=== PATIENT | male | born 1980 | race Caucasian/White ===

== ENCOUNTER 2017-07-07 21:34 | Emergency (ER) | payer OTHER ==
[2017-07-07 21:52] VITALS: RESP 16; TEMP 98; O2SAT 100
--- NOTE | 2017-07-08 00:09 | CT ---
EXAM: CT Abdomen and Pelvis Without Intravenous Contrast CLINICAL HISTORY: 36 years old, male; Pain; Abdominal pain; Flank; Right; Additional info: Right flank pain TECHNIQUE: Axial computed tomography images of the abdomen and pelvis without intravenous contrast. All CT scans at this facility use one or more dose reduction techniques, viz.: automated exposure control; ma/kV adjustment per patient size (including targeted exams where dose is matched to indication; i.e. head); or iterative reconstruction technique. Coronal and sagittal reformatted images were created and reviewed. COMPARISON: CT - ABD PELVIS W/O PO OR IV CONT 2016-07-06 22:57 FINDINGS: Lower thorax: No acute findings. ABDOMEN: Liver: Fatty infiltration. Gallbladder and bile ducts: No calcified stones. No ductal dilation. Pancreas: Unremarkable. No ductal dilation. Spleen: No splenomegaly. Adrenals: No mass. Kidneys and ureters: No renal calculi. Minimal pelvocaliectasis of RIGHT kidney. 0.3 x 0.2 x 0.6 cm calculus within RIGHT proximal ureter. Stomach and bowel: No definite mural thickening. No obstruction. Appendix: Normal caliber. No inflammation. PELVIS: Bladder: Unremarkable. No stones. Reproductive: Unremarkable as visualized. ABDOMEN and PELVIS: Intraperitoneal space: No significant fluid collection. No free air. Bones/joints: Chronic deformity left 11th costal cartilage. No acute fracture. Probable bone islands. Soft tissues: Tiny umbilical hernia containing fat. Vasculature: Unremarkable. No aneurysm. Lymph nodes: No pathologically enlarged lymph nodes. IMPRESSION: 1. RIGHT proximal ureteral calculus with minimal hydronephrosis. 2. Incidental/non-acute findings are described above.
--- NOTE | 2017-07-08 00:17 | ED PDOC ---
HPI: Back Time Seen by Provider: 07/07/17 22:20 Chief Complaint (Nursing): Abdominal Pain Chief Complaint (Provider): LEFT flank pain History Per: Patient Onset/Duration Of Symptoms: Hrs (3), Sudden Onset Current Symptoms Are (Timing): Gone Now Quality Of Discomfort: Sharp Exacerbating Factor(s): Nothing Additional Complaint(s): Similar to when he had kidney stone in the past Had not taken anything for pain, but it resolved spontaneously No dysuria, frequency, and hematuria Past Medical History Reviewed: Historical Data, Nursing Documentation, Vital Signs Vital Signs: Last Vital Signs Temp 98.0 F 07/07/17 21:49 Pulse 73 07/07/17 21:49 Resp 16 07/07/17 21:49 BP 150/93 H 07/07/17 21:49 Pulse Ox 100 07/07/17 21:49 - Medical History PMH: Kidney Stones - Surgical History Surgical History: Tonsillectomy - Family History Family History: States: Unknown Family Hx - Social History Current smoker - smoking cessation education provided: No - Immunization History Hx Tetanus Toxoid Vaccination: Yes Hx Influenza Vaccination: No Hx Pneumococcal Vaccination: No - Home Medications Home Medications: Ambulatory Orders Medication Instructions Recorded Ondansetron ODT [Zofran ODT] 1 odt PO BID PRN #10 odt 08/15/13 Acetaminophen with Codeine 1 each PO Q4 #12 tablet 07/07/16 [Tylenol with Codeine #3 Tablet] Tamsulosin [Flomax] 0.4 mg PO DAILY #12 cap 07/07/16 Acetaminophen with Codeine 2 tab PO Q4H PRN #22 tab 07/08/17 [Tylenol with Codeine No. 3 300 mg-30 mg] Ondansetron ODT [Zofran ODT] 1 odt PO Q6 PRN #20 odt 07/08/17 Tamsulosin [Flomax] 0.4 mg PO DAILY #14 cap 07/08/17 - Allergies Allergies/Adverse Reactions: Allergies Allergy/AdvReac Type Severity Reaction Status Date / Time ibuprofen Allergy SWELLING Verified 07/07/17 21:49 Review of Systems ROS Statement: Except As Marked, All Systems Reviewed And Found Negative (and per HPI) Genitourinary Male: Negative for: Dysuria, Frequency, Hematuria Musculoskeletal: Positive for: Back Pain Physical Exam - Reviewed Nursing Documentation Reviewed: Yes Vital Signs Reviewed: Yes - Physical Exam Appears: Positive for: Non-toxic, No Acute Distress Head Exam: Positive for: ATRAUMATIC, NORMOCEPHALIC Skin: Positive for: Warm, Dry Gastrointestinal/Abdominal: Positive for: Soft. Negative for: Tenderness, Mass , Distended, Guarding Back: Positive for: Normal Inspection. Negative for: L CVA Tenderness, R CVA Tenderness Extremity: Positive for: Normal ROM. Negative for: Deformity Lymphatic: Negative for: Adenopathy Neurologic/Psych: Positive for: Alert. Negative for: Motor/Sensory Deficits - ECG O2 Sat by Pulse Oximetry: 100 Medical Decision Making Medical Decision Making: CT scan demonstrates proximal LEFT renal stone, mild hydro, largest at 6mm. DW pt findings. Continues to be pain-free. DW pt plan of care: antibiotics, fluids, flomax, pain meds, f/u PMD/urology. Reasons to RTER d/w pt. Questions/concerns addressed. Disposition - Clinical Impression Clinical Impression: Kidney stone Counseled Patient/Family Regarding: Studies Performed, Diagnosis, Need For Followup, Rx Given - Disposition Referrals: Neno Devries MD [Medical Doctor] - 07/09/17 (CALL TOMORROW TO SETUP APPOINTMENT WITHIN A WEEK) Disposition: Routine/Home Disposition Time: 00:18 Condition: STABLE Prescriptions: Acetaminophen with Codeine [Tylenol with Codeine No. 3 300 mg-30 mg] 2 tab PO Q4H PRN #22 tab PRN Reason: Pain Ondansetron ODT [Zofran ODT] 1 odt PO Q6 PRN #20 odt PRN Reason: Nausea/Vomiting Tamsulosin [Flomax] 0.4 mg PO DAILY #14 cap Instructions: Kidney Stones in Adults Forms: [facility] (Monegasque)
[2017-07-08 00:37] VITALS: BP 132/86; PULSE 84
== END 2017-07-08 00:37 | disposition home or self-care (01) ==
LOC: H.ER 21:34
DX: N20.0 Calculus of kidney (principal); Z87.442 Personal history of urinary calculi

== ENCOUNTER 2018-04-16 20:10 | Emergency (ER) | payer OTHER ==
[2018-04-16 20:27] VITALS: BP 166/87; PULSE 76; RESP 18; TEMP 97.7; O2SAT 99
[2018-04-16] MEDS ORDERED: Amoxicillin-Clav 875-125 mg Tab PO STA (20:34)
[2018-04-16] MEDS ORDERED: Amoxicillin-Clav 875-125 mg Tab PO ONE (20:38)
--- NOTE | 2018-04-16 20:43 | ED PDOC ---
HPI: Dental Pain/Injury Time Seen by Provider: 04/16/18 20:20 Chief Complaint (Nursing): Dental Pain Chief Complaint (Provider): Dental Pain History Per: Patient History/Exam Limitations: no limitations Onset/Duration Of Symptoms: Days (1x week) Current Symptoms Are (Timing): Still Present Severity: Moderate Additional Complaint(s): 37 year old male presents to the ED with complaints of left sided facial pain worsening progressively for 1x week. Patient states that the pain initially presented while eating, but yesterday it became constant. Patient states that the pain worsens when he bends his head forward. Patient also reports having nasal congestion. Patient denies having fevers, trauma, rash, and chills. Patient reports taking tylenol with minimal relief. PMD: [facility] Past Medical History Reviewed: Historical Data, Nursing Documentation, Vital Signs Vital Signs: Last Vital Signs Temp 97.7 F 04/16/18 20:26 Pulse 76 04/16/18 20:26 Resp 18 04/16/18 20:26 BP 166/87 H 04/16/18 20:26 Pulse Ox 99 04/16/18 20:26 - Medical History PMH: Kidney Stones - Surgical History Surgical History: Tonsillectomy - Family History Family History: States: No Known Family Hx - Social History Alcohol: None Drugs: Denies - Immunization History Hx Tetanus Toxoid Vaccination: Yes Hx Influenza Vaccination: No Hx Pneumococcal Vaccination: No - Home Medications Home Medications: Ambulatory Orders Medication Instructions Recorded Ondansetron ODT [Zofran ODT] 1 odt PO BID PRN #10 odt 08/15/13 Acetaminophen with Codeine 1 each PO Q4 #12 tablet 07/07/16 [Tylenol with Codeine #3 Tablet] RX: Tamsulosin [Flomax] 0.4 mg PO DAILY #12 cap 07/07/16 Acetaminophen with Codeine 2 tab PO Q4H PRN #22 tab 07/08/17 [Tylenol with Codeine No. 3 300 mg-30 mg] Ondansetron ODT [Zofran ODT] 1 odt PO Q6 PRN #20 odt 07/08/17 Tamsulosin [Flomax] 0.4 mg PO DAILY #14 cap 07/08/17 Amoxicillin/Clavulanate [Augmentin 1 tab PO BID #19 tab 12/07/18 875 MG-125 MG] Fluticasone Propionate [Flonase] 2 spr NS DAILY PRN #1 bottle 04/16/18 Pseudoephedrine HCl 120 mg PO DAILY PRN #10 tablet.er 04/16/18 [Pseudoephedrine ER] - Allergies Allergies/Adverse Reactions: Allergies Allergy/AdvReac Type Severity Reaction Status Date / Time ibuprofen Allergy SWELLING Verified 04/16/18 20:26 Review of Systems ROS Statement: Except As Marked, All Systems Reviewed And Found Negative Constitutional: Negative for: Fever, Chills ENT: Positive for: Nose Congestion, Other (left sided facial pain) Skin: Negative for: Rash Physical Exam - Reviewed Nursing Documentation Reviewed: Yes Vital Signs Reviewed: Yes - Physical Exam Appears: Positive for: Well, Non-toxic, No Acute Distress Head Exam: Positive for: ATRAUMATIC, NORMOCEPHALIC Skin: Positive for: Normal Color Eye Exam: Positive for: Normal appearance, EOMI, PERRL ENT: Positive for: Other (left sided maxillary tenderness. (-) right sided maxillary tenderness. left nasal turbinate swollen. dry rhinorrhea noted to left nostril. (-) gingival swelling, (-) tooth tenderness.). Negative for: Pharyngeal Erythema, Tonsillar Exudate, Tonsillar Swelling ((-) erythema) Cardiovascular/Chest: Positive for: Regular Rate, Rhythm Respiratory: Positive for: Normal Breath Sounds Neurologic/Psych: Positive for: Alert, Oriented (3x). Negative for: Other (facial asymmetry) - ECG O2 Sat by Pulse Oximetry: 99 (RA) Pulse Ox Interpretation: Normal Medical Decision Making Medical Decision Makin:20 Initial impression: 37 year old male with left sided facial pain Initial plan: - augmentin 875 mg- 125 mg tab 1 tab PO -Advised to f/u with [facility] but is to return to ED immediately if symptoms worsen. Scribe Attestation: Documented by Adrianna Carson, acting as a scribe for Soto Messer. Provider Scribe Attestation: All medical record entries made by the Scribe were at my direction and pers onally dictated by me. I have reviewed the chart and agree that the record accurately reflects my personal performance of the history, physical exam, medical decision making, and the department course for this patient. I have also personally directed, reviewed, and agree with the discharge instructions and disposition. Disposition - Clinical Impression Clinical Impression: Acute sinusitis - Patient ED Disposition Is Patient to be Admitted: No - Disposition Referrals: [facility] [Outside] Disposition: Routine/Home Disposition Time: 20:34 Condition: STABLE Additional Instructions: FOLLOW UP WITH [facility] FOR FURTHER EVALUATION RETURN TO ED IMMEDIATELY IF SYMPTOMS WORSEN MAR SIMMONS, thank you for letting us take care of you today. Your provider was Juan Antonio Gorman MD and you were treated for MOUTH PAIN. The emergency medical care you received today was directed at your acute symptoms. If you were prescribed any medication, please fill it and take as directed. It may take several days for your symptoms to resolve. Return to the Emergency Department if your symptoms worsen, do not improve, or if you have any other problems. Please contact your doctor or call one of the physicians/clinics you have been referred to that are listed on the Patient Visit Information form that is included in your discharge packet. Bring any paperwork you were given at discharge with you along with any medications you are taking to your follow up visit. Our treatment cannot replace ongoing medical care by a primary care provider outside of the emergency department. Thank you for allowing the [facility] team to be part of your care today. If you had an X-Ray or CT scan: A Radiologist will review the ED reading if any change in treatment is needed we will contact you. If you had a blood, urine, or wound culture: It will take several days for the results, if any change in treatment is needed we will contact you. If you had an STI test: It will take 48 hours for the results. Please call after 1 week if you have not heard back. Prescriptions: Amoxicillin/Clavulanate [Augmentin 875 MG-125 MG] 1 tab PO BID #19 tab Fluticasone Propionate [Flonase] 2 spr NS DAILY PRN #1 bottle PRN Reason: Allergy Symptoms Pseudoephedrine HCl [Pseudoephedrine ER] 120 mg PO DAILY PRN #10 tablet.er PRN Reason: sinus congestion Instructions: Sinusitis, Adult (DC) Forms: [employer] (Turkmen)
== END 2018-04-16 20:45 | disposition home or self-care (01) ==
LOC: H.ER 20:10
DX: J01.90 Acute sinusitis, unspecified (principal)

== ENCOUNTER 2018-05-08 19:25 | Emergency (ER) | payer OTHER ==
--- NOTE | 2018-05-08 20:27 | ED PDOC ---
HPI: Back <Adrianna Fuentes - Last Filed: 05/09/18 03:07> Additional Complaint(s): 37 yo male with PMHx renal stone presents with complaints of sudden onset of right sided lower back pain that radiates to right groin this afternoon. Patient reports he was sitting down when the pain started (4/10 at time of pain) and relieves with standing. States he feels his right testicle is swollen. Patient reports his resolved completely after he came to ED. Denies any nausea, vomiting, fever, chills, hematuria or urinary frequency. Denies any back pain injury or lifting heavy objects. Patient was seen in ED on 07/07/17 w/ similar symptoms and CT of A/P showed 0.3 x 0.2 x 0.6 cm stone at right proximal ureter. Patient never followed with urologist as recommended. PMD: [facility] (no visit in [facility]) <Sultan Randell - Last Filed: 05/09/18 04:16> Chief Complaint (Nursing): Back Pain Past Medical History Vital Signs: Last Vital Signs Temp 98.5 F 05/08/18 19:36 Pulse 80 05/08/18 19:36 Resp 18 05/08/18 19:36 BP 144/86 05/08/18 19:36 Pulse Ox 98 05/08/18 20:40 <Adrianna Fuetnes - Last Filed: 05/09/18 03:07> Vital Signs: Last Vital Signs Temp 98.5 F 05/08/18 19:36 Pulse 80 05/08/18 19:36 Resp 18 05/08/18 19:36 BP 144/86 05/08/18 19:36 Pulse Ox 98 05/08/18 19:36 - Medical History PMH: Kidney Stones - Surgical History Surgical History: Tonsillectomy - Family History Family History: States: Unknown Family Hx - Immunization History Hx Tetanus Toxoid Vaccination: Yes Hx Influenza Vaccination: No Hx Pneumococcal Vaccination: No <Sultan Randell - Last Filed: 05/09/18 04:16> - Home Medications Home Medications: Ambulatory Orders Medication Instructions Recorded Ondansetron ODT [Zofran ODT] 1 odt PO BID PRN #10 odt 08/15/13 Acetaminophen with Codeine 1 each PO Q4 #12 tablet 07/07/16 [Tylenol with Codeine #3 Tablet] RX: Tamsulosin [Flomax] 0.4 mg PO DAILY #12 cap 07/07/16 Acetaminophen with Codeine 2 tab PO Q4H PRN #22 tab 07/08/17 [Tylenol with Codeine No. 3 300 mg-30 mg] Ondansetron ODT [Zofran ODT] 1 odt PO Q6 PRN #20 odt 07/08/17 Tamsulosin [Flomax] 0.4 mg PO DAILY #14 cap 07/08/17 Amoxicillin/Clavulanate [Augmentin 1 tab PO BID #19 tab 04/16/18 875 MG-125 MG] Fluticasone Propionate [Flonase] 2 spr NS DAILY PRN #1 bottle 04/16/18 Pseudoephedrine HCl 120 mg PO DAILY PRN #10 tablet.er 04/16/18 [Pseudoephedrine ER] RX: Cefuroxime Axetil [Cefuroxime] 500 mg PO BID #20 tablet 05/09/18 Tamsulosin HCl [Flomax] 0.4 mg PO DAILY #30 cap.er.24h 05/09/18 - Allergies Allergies/Adverse Reactions: Allergies Allergy/AdvReac Type Severity Reaction Status Date / Time ibuprofen Allergy SWELLING Verified 05/08/18 19:36 Review of Systems ROS Statement: Except As Marked, All Systems Reviewed And Found Negative Constitutional: Negative for: Fever, Chills Cardiovascular: Negative for: Chest Pain Respiratory: Negative for: Cough Gastrointestinal: Negative for: Nausea, Vomiting, Abdominal Pain Genitourinary Male: Negative for: Dysuria, Frequency, Hematuria, Penile Discharge, Scrotal Pain, Penile Pain <Sultan Randell - Last Filed: 05/09/18 04:16> Physical Exam - Physical Exam Appears: Positive for: Well, Non-toxic, No Acute Distress Head Exam: Positive for: ATRAUMATIC, NORMOCEPHALIC Skin: Positive for: Normal Color Cardiovascular/Chest: Positive for: Regular Rate, Rhythm. Negative for: Murmur Respiratory: Positive for: Normal Breath Sounds. Negative for: Rales, Rhonchi, Wheezing Gastrointestinal/Abdominal: Positive for: Bowel Sounds, Soft. Negative for: Tenderness, Guarding, Rebound Male Genital Exam: Positive for: normal genitalia, other (Uncircumcised. No penile discharge. Right testicle>Left testicle. No scrotal swelling or tenderness. ). Negative for: no hernia, epididymal tenderness, erythema, hernia mass, inguinal tenderness, lesions, scrotum tenderness (R), scrotum tenderness (L), testicular tenderness (R), testicular tenderness (L), urethral discharge Back: Positive for: Normal Inspection. Negative for: L CVA Tenderness, R CVA Tenderness Neurologic/Psych: Positive for: Alert, Oriented <Sultan Randell - Last Filed: 05/09/18 04:16> - Laboratory Results Result Diagrams: 05/08/18 20:52 05/08/18 20:52 <Adrianna Fuentes - Last Filed: 05/09/18 03:07> - Laboratory Results Result Diagrams: 05/08/18 20:52 05/08/18 20:52 - ECG O2 Sat by Pulse Oximetry: 98 - Progress ED Course And Treament: 37 year male PMHx renal stone presents to ED with complaints of right lower back pain that radiates to right inguinal region. Plan: CBC W/ diff CMP UA renal US Testicular US Flomax Patient is pain free now 13:50 Patient continues to be pain free Vitals stable Labs reviewed unremarkable except for UA positive for small blood and urine rbc 34 Testicular US: B/L hydroceles, otherwise unremarkable Renal US: Impression: right kidney pelvic fullness. NO ureteral jets observed B/L CT of abdomen and pelvis was ordered to r/o hydronephrosis CT A/P: impression: 6.5 mm obstructing stone of the distal right ureter just above the right ureterovesical junction. Mild right hydroureteronephrosis. 2:30 am on 05/09/18 Dr. Fuentes spoke with Dr. Mcfarland (urologist) regarding patient. Dr. Mcfarland recommended to have KUB and 1 gm Ceftriaxone IVP, and if patient is afebrile and asymptomatic, to discharge home with flomax 0.4 mg po daily and ceftin 500 mg po bid for 10 days. Patient needs to f/u with Dr. Mcfarland as soon as possible. Time 3:20 Patient continues to be pain free and stable vitals. Patient is medically stable to discharge home with medications Stressed the importance of f/u with urologist as continuous hydroneprosis can be detrimental for his kidney. Patient verbalizes understand and agrees with plan and to f/u with urologist. Plan d/w Dr. Fuentes <Sultan Randell - Last Filed: 05/09/18 04:16> Medical Decision Making Medical Decision Making: Patient seen and evaluated at bedside with resident, including HPI and exam. Agree with assessment, plan and discharge. <Adrianna Fuentes - Last Filed: 05/09/18 03:07> Disposition <Adrianna Fuentes - Last Filed: 05/09/18 03:07> <Sultan Randell - Last Filed: 05/09/18 04:16> - Clinical Impression Clinical Impression: Renal and ureteric calculus - Disposition Referrals: Fantasma Mcfarland MD [Staff Provider] - Condition: IMPROVED Additional Instructions: Take medications as prescribed. Follow up with urologist in 2 to 4 days as r eferred. Take 800mg of Motrin every 6 hours if you have pain. Return to the emergency department if symptoms worsen or if new symptoms develop (fever, blood in urine, etc). Prescriptions: RX: Cefuroxime Axetil [Cefuroxime] 500 mg PO BID #20 tablet Tamsulosin HCl [Flomax] 0.4 mg PO DAILY #30 cap.er.24h Instructions: Kidney Stones (DC), Urinary Obstruction (DC) Forms: [facility] (Azeri) Print Language: KINYARWANDA
[2018-05-08 21:07] LABS: BASO % 0.3 % (0.0-2.0); EOS # 0.4 K/uL (0.0-0.7); EOS % 3.6 % (0.0-4.0); HEMOGLOBIN 13.8 g/dL (12.0-18.0); LYMPH # 3.2 K/uL (1.0-4.3); MEAN CELL VOLUME 89.8 fl (80.0-94.0); MEAN CORPUSCULAR HEMOGLOBIN 30.6 pg (27.0-31.0); MEAN PLATELET VOLUME 9.2 fl (7.2-11.7); MONO # 0.9 K/uL (0.0-0.8); MONO % 8.3 % (0.0-10.0); NEUT # 6.1 K/uL (1.8-7.0); NEUT % 57.8 % (50.0-75.0); NRBC % 0.1 % (0.0-0.0); RBC 4.53 Mil/uL (4.40-5.90); WHITE BLOOD COUNT 10.6 K/uL (4.8-10.8)
[2018-05-08 21:11] LABS: SQUAMOUS EPITHIAL < 1 /hpf (0-5); URINE BILIRUBIN NEGATIVE (NEGATIVE); URINE BLOOD SMALL (NEGATIVE); URINE CLARITY CLEAR (Clear); URINE COLOR YELLOW (YELLOW); URINE GLUCOSE (UA) NEG (NEGATIVE); URINE LEUKOCYTE ESTERASE NEG Leu/uL (Negative); URINE PROTEIN NEGATIVE (NEGATIVE); URINE UROBILINOGEN 0.2-1.0 mg/dL (0.2-1.0)
[2018-05-08 21:15] LABS: ALB/GLOB RATIO 1.4 (1.0-2.1); ALBUMIN 4.5 g/dL (3.5-5.0); BLOOD UREA NITROGEN 17 mg/dl (9-20); CALCIUM 9.7 mg/dL (8.4-10.2); GFR NON-AFRICAN AMERICAN > 60
[2018-05-08 21:23] LABS: ALT/SGPT 70 U/L (21-72); AST/SGOT 49 U/L (17-59)
[2018-05-09] MEDS ORDERED: cefTRIAXone (Rocephin) 1 gm Inj ONE (02:52)
[2018-05-09 04:13] VITALS: BP 139/93; PULSE 67; RESP 17; TEMP 97.9
[2018-05-09 04:16] VITALS: O2SAT 98
--- NOTE | 2018-05-09 10:22 | CT ---
Date of service: 05/09/2018 PROCEDURE: CT Abdomen and Pelvis without intravenous contrast HISTORY: Right lower back pain. Ultrasound demonstrated right kidney pelvic fullness. COMPARISON: Comparison made with prior CT scan the abdomen and pelvis 07/07/2017. TECHNIQUE: Contiguous helical/transaxial sections the abdomen pelvis performed without oral or intravenous contrast material. Additional 2D sagittal and coronal reformats generated. Radiation dose: Total exam DLP = 892.25 mGy-cm. This CT exam was performed using one or more of the following dose reduction techniques: Automated exposure control, adjustment of the mA and/or kV according to patient size, and/or use of iterative reconstruction technique. FINDINGS: LOWER THORAX: Heart appears mildly enlarged. Small no significant pericardial effusion. Small hiatal hernia. Minor passive/dependent type atelectasis both posterior lower lung oh. No evidence of effusion or basilar pneumothorax. LIVER: Liver exhibits normal size. Mild fatty hepatic infiltration. No obvious hepatic masses or collections seen on this noncontrast exam GALLBLADDER AND BILE DUCTS: Gallbladder is physiologically distended. No evidence of intraluminal gallbladder calculi. PANCREAS: Unremarkable. No gross lesion or ductal dilatation. SPLEEN: Spleen exhibits normal size and attenuation pattern without mass collection or calcification. ADRENALS: There are no adrenal lesions. KIDNEYS AND URETERS: There is an approximately 6.3 mm calculus distal right ureter with mild right-sided hydronephrosis. VASCULATURE: Unremarkable. No aortic aneurysm. No aortic atherosclerotic calcification or mural plaque present. BOWEL: Evaluation of the bowel is limited due to the lack of oral contrast material. No gross bowel related abnormalities. APPENDIX: Unremarkable. Normal appendix. PERITONEUM: Unremarkable. No free fluid. No free air. Small fat containing umbilical hernia. LYMPH NODES: Unremarkable. No enlarged lymph nodes. BLADDER: Urinary bladder is incompletely distended. No evidence of intraluminal urinary bladder calculi. REPRODUCTIVE: Prostate gland measures approximately 4.2 cm in transverse dimension likely due to BPH. Correlation with PSA. There are also scattered prostatic calcifications. BONES: Minor multilevel degenerative spondylosis of the lower thoracic and lumbar spine. OTHER FINDINGS: None. IMPRESSION: 6.3 mm obstructing calculus distal right ureter with mild right-sided hydronephrosis. Mild cardiomegaly.
--- NOTE | 2018-05-09 13:49 | RAD ---
Date of service: 05/09/2018 HISTORY: renal stone COMPARISON: Mid pelvis again noted comparison made with prior CT scan of the abdomen pelvis earlier same day FINDINGS: BOWEL: No evidence of acute mechanical bowel obstruction. Moderate amount of stool seen in the cecum and ascending colon and to a lesser degree proximal-mid descending colon consistent with mild fecal retention/constipation. BONES: Normal. OTHER FINDINGS: Distal right ureteral calculus overlying the right right mid true pelvis IMPRESSION: Distal right ureteral calculus again noted.
--- NOTE | 2018-05-09 16:24 | US ---
Date of service: 05/08/2018 PROCEDURE: Ultrasound of the Kidneys HISTORY: RT lower back pain radiates to groin.hx renal ston COMPARISON: None available. TECHNIQUE: Sonogram of the kidneys. FINDINGS: RIGHT KIDNEY: Measures: 12.2 x 6.9 x 6.2 cm. Normal in size, contour and echogenicity. There is mild right-sided hydronephrosis.. LEFT KIDNEY: Measures: 12.0 x 6.2 x 6.1 cm. Normal in size, contour and echogenicity. No stone, solid mass lesion or hydronephrosis visualized. OTHER FINDINGS: Neither the right nor left ureteral jets visualized on this study. IMPRESSION: Mild right-sided hydronephrosis...
--- NOTE | 2018-05-09 16:26 | US ---
Date of service: 05/08/2018 HISTORY: groin pain radiates to rt testicle TECHNIQUE: Realtime sonography through the scrotum with color and doppler flow. COMPARISON: None Available. FINDINGS: RIGHT TESTICLE: Measures 4.4 x 3.3 x 2.2 cm. Normal echotexture and flow. RIGHT EPIDIDYMIS: Epididymal head measures 0.8 x 1.0 x 0.8 cm. Grossly unremarkable appearance with normal flow. LEFT TESTICLE: Measures 4.3 x 2.6 x 2.0 cm. Normal echotexture and flow. LEFT EPIDIDYMIS: Epididymal head measures 1.0 x 0.5 x 1.0 cm. Grossly unremarkable appearance with normal flow. HYDROCELE: Small bilateral the hydroceles are present VARICOCELE: None. OTHER FINDINGS: None. IMPRESSION: Small bilateral hydroceles
== END 2018-05-09 04:18 | disposition home or self-care (01) ==
LOC: H.ER 19:25
DX: N13.2 Hydronephrosis with renal and ureteral calculous obstruction (principal)
CPT/HCPCS: 74018; 74176; 76770; 80053; 81003; 85025; 93975; 96365; 99283; J0696

== ENCOUNTER 2018-07-09 20:17 | Emergency (ER) | payer OTHER ==
--- NOTE | 2018-07-09 21:28 | ED PDOC ---
HPI: Male Pain Time Seen by Provider: 07/09/18 20:47 Chief Complaint (Nursing): Male Genitourinary Chief Complaint (Provider): Dysuria History Per: Patient History/Exam Limitations: no limitations Onset/Duration Of Symptoms: Other (x1.5 week) Current Symptoms Are (Timing): Still Present Additional Complaint(s): 37 year old male presents to the ED with dysuria with frequency for the past week and a half. Patient states he is uncircumcised. Denies history of pre vious UTI, fever, chills, back pain, flank pain, nausea, vomiting, incontinence, penile discharge, or hematuria. PMD: [facility] Past Medical History Reviewed: Historical Data, Nursing Documentation, Vital Signs Vital Signs: Last Vital Signs Temp 98.3 F 07/09/18 20:44 Pulse 75 07/09/18 20:44 Resp 16 07/09/18 20:44 BP 151/91 H 07/09/18 20:44 Pulse Ox 99 07/09/18 20:44 - Medical History PMH: Kidney Stones - Surgical History Surgical History: Tonsillectomy - Family History Family History: States: Unknown Family Hx - Immunization History Hx Tetanus Toxoid Vaccination: Yes Hx Influenza Vaccination: No Hx Pneumococcal Vaccination: No - Home Medications Home Medications: Ambulatory Orders Medication Instructions Recorded Ondansetron ODT [Zofran ODT] 1 odt PO BID PRN #10 odt 08/15/13 Acetaminophen with Codeine 1 each PO Q4 #12 tablet 07/07/16 [Tylenol with Codeine #3 Tablet] Tamsulosin [Flomax] 0.4 mg PO DAILY #12 cap 07/07/16 Acetaminophen with Codeine 2 tab PO Q4H PRN #22 tab 07/08/17 [Tylenol with Codeine No. 3 300 mg-30 mg] Ondansetron ODT [Zofran ODT] 1 odt PO Q6 PRN #20 odt 07/08/17 Tamsulosin [Flomax] 0.4 mg PO DAILY #14 cap 07/08/17 Amoxicillin/Clavulanate [Augmentin 1 tab PO BID #19 tab 04/16/18 875 MG-125 MG] Fluticasone Propionate [Flonase] 2 spr NS DAILY PRN #1 bottle 04/16/18 Pseudoephedrine HCl 120 mg PO DAILY PRN #10 tablet.er 04/16/18 [Pseudoephedrine ER] Cefuroxime Axetil [Cefuroxime] 500 mg PO BID #20 tablet 05/09/18 Tamsulosin HCl [Flomax] 0.4 mg PO DAILY #30 cap.er.24h 05/09/18 Ibuprofen [Motrin Tab] 800 mg PO Q8 PRN #15 tab 07/10/18 Phenazopyridine [Pyridium] 200 mg PO BID #6 tab 07/10/18 Tamsulosin [Flomax] 0.4 mg PO DAILY #12 cap 07/10/18 - Allergies Allergies/Adverse Reactions: Allergies Allergy/AdvReac Type Severity Reaction Status Date / Time ibuprofen Allergy SWELLING Verified 05/08/18 19:36 Review of Systems ROS Statement: Except As Marked, All Systems Reviewed And Found Negative Constitutional: Negative for: Fever, Chills Gastrointestinal: Negative for: Nausea, Vomiting, Other (flank pain) Genitourinary Male: Positive for: Dysuria. Negative for: Incontinence, Hematuria, Penile Discharge Musculoskeletal: Negative for: Back Pain Physical Exam - Reviewed Nursing Documentation Reviewed: Yes Vital Signs Reviewed: Yes - Physical Exam Gastrointestinal/Abdominal: Positive for: Normal Exam, Soft. Negative for: Tenderness Back: Positive for: Normal Inspection. Negative for: L CVA Tenderness, R CVA Tenderness - Laboratory Results Result Diagrams: 07/09/18 22:50 07/09/18 22:50 - ECG O2 Sat by Pulse Oximetry: 99 (RA) Pulse Ox Interpretation: Normal Medical Decision Making Medical Decision Making: Initial Impression: Dysuria Initial Plan: --Chlamydia stat --Urine culture --Urinalysis Time: 5 --CT ABD/pelvis FINDINGS: LUNG BASES: The lung bases appear clear. No pleural effusions are seen. LIVER: There is hepatomegaly. The liver measured 18.4 cm in the midclavicular line. GALLBLADDER AND BILE DUCTS: The gallbladder appears within normal limits. No radioopaque gallstones are seen. No biliary ductal dilatation is evident. PANCREAS: Unremarkable. SPLEEN: Unremarkable. ADRENAL GLANDS: Unremarkable. KIDNEYS, URETERS, AND BLADDER: The kidneys appear within normal limits. A persistent partially obstructing 6.0 mm calculus is seen within the distal right ureter lodged just proximal to the right UVJ. There is persistent mild right hydronephrosis/hydroureter. The urinary bladder is normal in size and configuration. STOMACH AND BOWEL: Unremarkable appearance of the stomach and bowel. No evidence of bowel obstruction. No evidence suggesting enteritis or colitis. APPENDIX: No evidence of acute appendicitis on CT examination. PERITONEUM: No free fluid. No free air. LYMPH NODES: No lymphadenopathy is evident. REPRODUCTIVE: Unremarkable as visualized. The prostate gland is at the upper limits of normal size measuring 5.0 cm transversely. VASCULATURE: No evidence of abdominal aortic aneurysm. BONES: No aggressive appearing osseous lesion. No acute osseous pathology evident. Inci dental discovery is made of a 1.0 cm sclerotic focus in the posterior upper left innominate thought compatible with a bone island. IMPRESSION: 1. A persistent partially obstructing 6.0 mm calculus is seen in the distal right ureter. This is lodged just proximal to the right UVJ. Associated mild right hydronephrosis/hydroureter. 2. Hepatomegaly. 3. Incidental note is made of a 1.0 cm bone island in the upper left innominate. Previous CT reviewed from 04/2018 visit which shows the same stone by was 6.5mm. Case d/w Dr. Fuentes who states pt. can be dc'd home with Rx for flomax and NSA IDs and is to f/u with urologist. Pt. informed of plan and results and pending cultures. Pt. in no distress. Reports pain is present only when urinating. Agrees with plan. States he once took a [employer] brand Motrin which caused swelling to his lips but has since taken non-[employer] brand ibuprofen multiple times without any reaction. States he did take ibuprofen 2 weeks ago without any reaction. Advised to f/u with [facility] or Dr. Greenberg for further evaluation but is to return to ED immediately if symp toms worsen or of any reaction occurs when taking medication. Informed that his urine will likely turn a different color when taking Pyridium. Scribe Attestation: Documented by Dario Combs acting as a scribe for Soto BUCHANAN. Provider Scribe Attestation: All medical record entries made by the Scribe were at my direction and personally dictated by me. I have reviewed the chart and agree that the record accurately reflects my personal performance of the history, physical exam, medical decision making, and the department course for this patient. I have also personally directed, reviewed, and agree with the discharge instructions and disposition. Disposition - Clinical Impression Clinical Impression: Dysuria, Kidney stone - Patient ED Disposition Is Patient to be Admitted: No - Disposition Referrals: Alexander Greenberg MD [Medical Doctor] - Disposition: Routine/Home Disposition Time: 00:20 Condition: STABLE Additional Instructions: FOLLOW UP WITH [facility] OR DR. GREENBERG FOR FURTHER EVALUATION RETURN TO ED IMMEDIATELY IF SYMPTOMS WORSEN MAR SIMMONS, thank you for letting us take care of you today. Your provider was Adrianna Fuentes MD and you were treated for PAINFUL URINATION. The emergency medical care you received today was directed at your acute symptoms. If you were prescribed any medication, please fill it and take as directed. It may take several days for your symptoms to resolve. Return to the Emergency Department if your symptoms worsen, do not improve, or if you have any other problems. Please contact your doctor or call one of the physicians/clinics you have been referred to that are listed on the Patient Visit Information form that is included in your discharge packet. Bring any paperwork you were given at discharge with you along with any medications you are taking to your follow up visit. Our treatment cannot replace ongoing medical care by a primary care provider outside of the emergency department. Thank you for allowing the [facility] team to be part of your care today. If you had an X-Ray or CT scan: A Radiologist will review the ED reading if any change in treatment is needed we will contact you. If you had a blood, urine, or wound culture: It will take several days for the results, if any change in treatment is needed we will contact you. If you had an STI test: It will take 48 hours for the results. Please call after 1 week if you have not heard back. Prescriptions: Ibuprofen [Motrin Tab] 800 mg PO Q8 PRN #15 tab PRN Reason: Pain Phenazopyridine [Pyridium] 200 mg PO BID #6 tab Tamsulosin [Flomax] 0.4 mg PO DAILY #12 cap Instructions: Kidney Stones (DC), Dysuria, Adult (DC), How to Strain Your Urine Forms: [facility] (Armenian)
[2018-07-09 21:48] LABS: URINE BILIRUBIN NEGATIVE (NEGATIVE); URINE BLOOD MODERATE (NEGATIVE); URINE CLARITY CLEAR (Clear); URINE COLOR STRAW (YELLOW); URINE GLUCOSE (UA) NEG (NEGATIVE); URINE LEUKOCYTE ESTERASE NEG Leu/uL (Negative); URINE PROTEIN NEGATIVE (NEGATIVE); URINE UROBILINOGEN 0.2-1.0 mg/dL (0.2-1.0)
[2018-07-09 23:10] LABS: BASO # 0.1 K/uL (0.0-0.2); BASO % 1.3 % (0.0-2.0); EOS # 0.4 K/uL (0.0-0.7); EOS % 3.6 % (0.0-4.0); HEMOGLOBIN 14.4 g/dL (12.0-18.0); LYMPH # 3.6 K/uL (1.0-4.3); LYMPH % 34.2 % (20.0-40.0); MEAN CELL VOLUME 89.4 fl (80.0-94.0); MEAN CORPUSCULAR HEMOGLOBIN 29.9 pg (27.0-31.0); MEAN CORPUSCULAR HGB CONC 33.5 g/dL (33.0-37.0); MEAN PLATELET VOLUME 9.3 fl (7.2-11.7); MONO # 0.6 K/uL (0.0-0.8); MONO % 5.4 % (0.0-10.0); NEUT # 5.8 K/uL (1.8-7.0); NEUT % 55.5 % (50.0-75.0); NRBC % 0.1 % (0.0-0.0); RBC 4.83 Mil/uL (4.40-5.90); RED CELL DISTRIBUTION WIDTH 12.8 % (11.5-14.5); WHITE BLOOD COUNT 10.4 K/uL (4.8-10.8)
[2018-07-09 23:14] LABS: ALB/GLOB RATIO 1.5 (1.0-2.1); ALBUMIN 4.9 g/dL (3.5-5.0); ALT/SGPT 51 U/L (21-72); AST/SGOT 29 U/L (17-59); BLOOD UREA NITROGEN 18 mg/dl (9-20); CALCIUM 10.1 mg/dL (8.4-10.2); GFR NON-AFRICAN AMERICAN > 60
[2018-07-10 00:20] VITALS: BP 140/79; PULSE 78; RESP 18; TEMP 98
[2018-07-10 00:24] VITALS: O2SAT 99
--- NOTE | 2018-07-10 10:17 | CT ---
Date of service: 07/09/2018 PROCEDURE: CT Abdomen and Pelvis without intravenous contrast HISTORY: hematuria, hx of kidney stones COMPARISON: CT scan of the abdomen and pelvis dated 05/09/2018. TECHNIQUE: Contiguous images were obtained from the domes of the diaphragms to the upper thighs without the administration of intravenous contrast. Oral contrast was not administered. Radiation dose: Total exam DLP = 842.74 mGy-cm. This CT exam was performed using one or more of the following dose reduction techniques: Automated exposure control, adjustment of the mA and/or kV according to patient size, and/or use of iterative reconstruction technique. FINDINGS: LOWER THORAX: Cardiomegaly. No focal consolidation or pleural effusion. LIVER: Diffuse hepatic steatosis. No gross lesion or ductal dilatation. GALLBLADDER AND BILE DUCTS: Unremarkable. PANCREAS: Unremarkable. No gross lesion or ductal dilatation. SPLEEN: Unremarkable. ADRENALS: Unremarkable. No mass. KIDNEYS AND URETERS: 7 x 4 mm right ureterovesicular junction calculus causing mild hydroureteronephrosis. No solid mass. VASCULATURE: Unremarkable. No aortic aneurysm. No aortic atherosclerotic calcification or mural plaque present. BOWEL: Unremarkable. No obstruction. No gross mural thickening. APPENDIX: Unremarkable. Normal appendix. PERITONEUM: Unremarkable. No free fluid. No free air. LYMPH NODES: Unremarkable. No enlarged lymph nodes. BLADDER: Unremarkable. REPRODUCTIVE: Unremarkable. BONES: No acute fracture. OTHER FINDINGS: None. IMPRESSION: 7 x 4 mm right ureterovesicular junction calculus causing mild right hydroureteronephrosis.
== END 2018-07-10 00:24 | disposition home or self-care (01) ==
LOC: H.ER 20:17
DX: R30.0 Dysuria (principal); N20.0 Calculus of kidney